=== PATIENT | female | born 1940 | race African-American/Black ===

== ENCOUNTER 2022-02-24 17:44 | Inpatient (IN) | payer OTHER ==
[~2022-02-24] VITALS: Ht 160 cm; Wt 63.0 kg
[2022-02-24] MEDS ORDERED: potassium (17:47)
[2022-02-24 19:59] LABS: HEMATOCRIT. 32.8 % (36.0-48.0); HEMOGLOBIN. 10.4 g/dL (12.0-16.0); MEAN CORPUSCULAR HEMOGLOBIN 23.7 pg (28.0-32.0); MEAN CORPUSCULAR VOLUME 74.9 fL (81.0-99.0); MEAN PLATELET VOLUME 8.3 fl (7.4-10.4); PLATELET 123 x1000/uL (130-400); RED BLOOD CELL COUNT 4.38 mill/uL (4.2-5.4); RED CELL DISTRIBUTION WIDTH 15.4 % (11.6-14.6)
[2022-02-24 20:17] LABS: INR 1.1; PROTHROMBIN TIME 11.4 sec (9.6-11.0)
[2022-02-24 20:24] LABS: CHLORIDE 106 mEq/L (98-107)
[2022-02-24] MEDS ORDERED: MORPHINE SULFATE 4 MG/ML CPJ (NOT FOR IM USE) IV ONE (21:15)
[2022-02-24] MEDS ORDERED: ENOXAPARIN 60MG/0.6ML SYR SUBCUT ONE (22:45)
[2022-02-24 22:49] LABS: PLATELET ESTIMATE SLIGHTLY DECREASED
[2022-02-25 05:37] LABS: CLARITY URINE CLEAR (CLEAR); COLOR URINE YELLOW (YELLOW); KETONES URINE NEGATIVE (NEGATIVE); LEUKOCYTE ESTERASE URINE 2+ (NEGATIVE); NITRITE URINE NEGATIVE (NEGATIVE); OCCULT BLOOD URINE NEGATIVE (NEGATIVE); PH URINE 7.5 (4.5-8.0); PROTEIN URINE NEGATIVE (NEGATIVE); SPECIFIC GRAVITY URINE 1.012 (1.005-1.030)
[2022-02-25] MEDS ORDERED: IPRATROPIUM/ALBUTEROL 0.5-3(2.5)MG/3ML NEB HHN PRN (14:30)
[2022-02-25] MEDS ORDERED: ACETAMINOPHEN 325MG TABLET PO PRN (14:30)
[2022-02-25] MEDS ORDERED: CLONIDINE 0.1MG TABLET PO PRN (14:30)
[2022-02-25] MEDS ORDERED: ONDANSETRON HCL 4MG/2ML INJ IV PRN (14:30)
[2022-02-25] MEDS ORDERED: DIPHENHYDRAMINE 50MG/ML VIAL IV PRN (14:30)
[2022-02-25] MEDS ORDERED: MORPHINE SULFATE 2 MG/ML CPJ (NOT FOR IM USE) IV PRN (14:30)
[2022-02-25] MEDS ORDERED: NALOXONE HCL 0.4MG/ML VIAL IV PRN (15:00)
[2022-02-25 18:10] LABS: TOTAL IRON BINDING CAPACITY 313 ug/dL (250-450)
[2022-02-26 12:00] VITALS: BP 150/67
[2022-02-26] MEDS ORDERED: IRON SUCROSE COMPLEX 100 MG/5 ML ML IV NR (12:15)
[2022-02-26 13:54] LABS: BASOPHILS % 0.9 % (0.0-2.0); EOSINOPHILS % 8.8 % (0.0-5.0); HEMATOCRIT. 32.8 % (36.0-48.0); HEMOGLOBIN. 10.3 g/dL (12.0-16.0); LYMPHOCYTES % 15.2 % (20.0-50.0); MEAN CORPUSCULAR HEMOGLOBIN 23.7 pg (28.0-32.0); MEAN CORPUSCULAR VOLUME 75.9 fL (81.0-99.0); MEAN PLATELET VOLUME 9.4 fl (7.4-10.4); MONOCYTES % 11.9 % (2.0-8.0); NEUTROPHILS % 63.2 % (40.0-76.0); PLATELET 133 x1000/uL (130-400); RED BLOOD CELL COUNT 4.32 mill/uL (4.2-5.4); RED CELL DISTRIBUTION WIDTH 15.2 % (11.6-14.6)
[2022-02-26 14:04] LABS: CHLORIDE 105 mEq/L (98-107)
[2022-02-26 15:53] VITALS: BP 150/67
[2022-02-26 16:00] VITALS: BP 167/68
[2022-02-26 20:00] VITALS: BP 137/86
[2022-02-27] VITALS: BP 145/70
[2022-02-27 04:00] VITALS: BP 143/49
[2022-02-27 06:45] LABS: HEMATOCRIT. 32.8 % (36.0-48.0); HEMOGLOBIN. 10.4 g/dL (12.0-16.0); MEAN CORPUSCULAR HEMOGLOBIN 24.2 pg (28.0-32.0); MEAN CORPUSCULAR VOLUME 76.2 fL (81.0-99.0); MEAN PLATELET VOLUME 8.8 fl (7.4-10.4); PLATELET 124 x1000/uL (130-400); RED CELL DISTRIBUTION WIDTH 15.4 % (11.6-14.6)
[2022-02-27 07:17] LABS: CHLORIDE 108 mEq/L (98-107)
[2022-02-27 08:00] VITALS: BP 130/47
[2022-02-27 10:51] LABS: PLATELET ESTIMATE SLIGHTLY DECREASED
[2022-02-27 12:00] VITALS: BP 133/49
[2022-02-27 16:00] VITALS: BP 142/52
[2022-02-27 16:56] VITALS: BP 132/59
== END 2022-02-27 17:20 | disposition home or self-care (01) | DRG 280 ==
LOC: ER 17:44 → 7WST 22:32 → EDBEDREQ 22:34 → ENRESERV 02-26 09:13
PROVIDERS: ADMIT Internal Medicine; ATTEND Internal Medicine
DX: I21.4 Non-ST elevation (NSTEMI) myocardial infarction (principal); I50.31 Acute diastolic (congestive) heart failure; E44.0 Moderate protein-calorie malnutrition; E78.5 Hyperlipidemia, unspecified; D69.6 Thrombocytopenia, unspecified; I11.0 Hypertensive heart disease with heart failure; D50.9 Iron deficiency anemia, unspecified; Z20.822 Contact with and (suspected) exposure to COVID-19; F03.90 Unspecified dementia, unspecified severity, without behavioral disturbance, psychotic disturbance, mood disturbance, and anxiety; I07.1 Rheumatic tricuspid insufficiency; Z86.73 Personal history of transient ischemic attack (TIA), and cerebral infarction without residual deficits; Z90.5 Acquired absence of kidney
CPT/HCPCS: 36415; 71045; 80048; 80053; 81001; 83550; 83880; 84484; 85025; 87426; 93005; 93306; 93970; 96372; 96374; 99285; C9803; J1650; J2270; J2405

== ENCOUNTER 2022-03-20 10:22 | Inpatient (IN) | payer OTHER ==
[~2022-03-20] VITALS: Ht 165.1 cm; Wt 54.4 kg
[2022-03-20] MEDS ORDERED: ACETAMINOPHEN 325MG TABLET PO ONE (11:00)
[2022-03-20 11:26] LABS: BASOPHILS % 0.9 % (0.0-2.0); EOSINOPHILS % 7.1 % (0.0-5.0); HEMOGLOBIN. 10.8 g/dL (12.0-16.0); LYMPHOCYTES % 8.4 % (20.0-50.0); MEAN CORPUSCULAR HEMOGLOBIN 24.1 pg (28.0-32.0); MEAN CORPUSCULAR VOLUME 75.4 fL (81.0-99.0); MEAN PLATELET VOLUME 8.9 fl (7.4-10.4); MONOCYTES % 10.6 % (2.0-8.0); PLATELET 145 x1000/uL (130-400); RED CELL DISTRIBUTION WIDTH 16.3 % (11.6-14.6)
[2022-03-20 11:35] LABS: CHLORIDE 107 mEq/L (98-107)
[2022-03-20] MEDS ORDERED: ASPIRIN 325MG TABLET PO ONE (12:00)
[2022-03-20 13:45] LABS: CLARITY URINE CLEAR (CLEAR); COLOR URINE YELLOW (YELLOW); KETONES URINE NEGATIVE (NEGATIVE); LEUKOCYTE ESTERASE URINE TRACE (NEGATIVE); NITRITE URINE NEGATIVE (NEGATIVE); OCCULT BLOOD URINE TRACE (NEGATIVE); PROTEIN URINE NEGATIVE (NEGATIVE); SPECIFIC GRAVITY URINE 1.008 (1.005-1.030); UROBILINOGEN URINE 0.2 E.U./dL (0.2-1.0)
[2022-03-20] MEDS ORDERED: GUAIFENESIN 200MG/10ML SUGAR FREE UDC PO PRN (14:00)
[2022-03-20] MEDS ORDERED: IPRATROPIUM/ALBUTEROL 0.5-3(2.5)MG/3ML NEB HHN PRN (14:00)
[2022-03-20] MEDS ORDERED: CLONIDINE 0.1MG TABLET PO PRN (14:00)
[2022-03-20] MEDS ORDERED: ACETAMINOPHEN 325MG TABLET PO PRN ×2 (14:00)
[2022-03-20] MEDS ORDERED: DOCUSATE SODIUM 100MG CAPSULE PO PRN (14:00)
[2022-03-20] MEDS ORDERED: HYDROCODONE/ACETAMINOPHEN 5/325MG TABLET PO PRN (14:00)
[2022-03-20] MEDS ORDERED: ONDANSETRON HCL 4MG/2ML INJ IV PRN (14:00)
[2022-03-20] MEDS ORDERED: SODIUM POLYSTYRENE SULFONATE 15 G/60 ML BOT PO NR (14:00)
[2022-03-20] MEDS ORDERED: AMLODIPINE 10MG TABLET PO SCH (14:00)
[2022-03-20] MEDS ORDERED: NALOXONE HCL 0.4MG/ML VIAL IV PRN (14:30)
[2022-03-20 14:37] LABS: D-DIMER 1.6 mg/L FEU (<0.50); INR 1.1; PROTHROMBIN TIME 11.3 sec (9.6-11.0)
[2022-03-20] MEDS ORDERED: METOPROLOL TARTRATE 25MG TABLET PO SCH (14:45)
[2022-03-20] MEDS ORDERED: CLONIDINE 0.1MG TABLET PO SCH (14:45)
[2022-03-20] MEDS: FUROSEMIDE 20MG TABLET PO SCH (14:45)
[2022-03-20] MEDS: LISINOPRIL 2.5MG TABLET PO SCH (15:00)
[2022-03-20] MEDS ORDERED: IRON SUCROSE COMPLEX 100 MG/5 ML ML IV SCH (15:00)
[2022-03-20] MEDS ORDERED: DEXT 5%/0.45% NACL 1000ML 1,000 ML IV SCH (15:15)
[2022-03-20] MEDS ORDERED: MORPHINE SULFATE 2 MG/ML CPJ (NOT FOR IM USE) IV PRN (15:45)
[2022-03-20 16:43] LABS: PROTHROMBIN TIME 11.2 sec (9.6-11.0)
[2022-03-20 17:20] LABS: FERRITIN 419 ng/mL (10-291)
[2022-03-20 17:26] LABS: VITAMIN B12 SERUM 431 pg/mL (211-911)
[2022-03-20] MEDS ORDERED: ENOXAPARIN 30MG/0.3ML SYR SUBCUT SCH (18:00)
[2022-03-20 20:00] VITALS: BP 181/70
[2022-03-20] MEDS: METOPROLOL TARTRATE 25MG TABLET PO SCH (20:36)
[2022-03-20] MEDS: CLONIDINE 0.1MG TABLET PO SCH (20:37)
[2022-03-20] MEDS: AMLODIPINE 5MG TABLET PO SCH (20:37)
[2022-03-20] MEDS ORDERED: FAMOTIDINE 20MG TABLET PO SCH (21:00)
[2022-03-20] MEDS ORDERED: [UNRECOGNIZED DRUG - CODE] MC (22:49)
[2022-03-20] MEDS ORDERED: MV-M1TAB19 PO (22:49)
[2022-03-20] MEDS ORDERED: FURO-152 PO (22:49)
[2022-03-20] MEDS ORDERED: NITR0.4T49 SL (22:49)
[2022-03-20] MEDS ORDERED: PANT40TA51 PO (22:49)
[2022-03-20] MEDS ORDERED: METO-396 PO (22:49)
[2022-03-20] MEDS ORDERED: LISI10TA26 PO (22:49)
[2022-03-20] MEDS ORDERED: LISI20TA31 PO (22:49)
[2022-03-20] MEDS ORDERED: ASPI-1497 PO (22:49)
[2022-03-20] MEDS ORDERED: CHOL1POW2 MC (22:49)
[2022-03-20] MEDS ORDERED: IOHEXOL-350 100 ML BOTTLE ONE (23:11)
[2022-03-20 23:35] LABS: CREATINE KINASE 1446 IU/L (26-192)
[2022-03-21] VITALS: BP 136/80
[2022-03-21 03:48] VITALS: BP 120/75
[2022-03-21 04:00] VITALS: BP 113/50
[2022-03-21] MEDS: CLONIDINE 0.1MG TABLET PO SCH ×2 (05:24→14:09)
[2022-03-21 07:16] LABS: BASOPHILS % 1.6 % (0.0-2.0); EOSINOPHILS % 7.8 % (0.0-5.0); HEMATOCRIT. 32.5 % (36.0-48.0); HEMOGLOBIN. 10.4 g/dL (12.0-16.0); LYMPHOCYTES % 15.7 % (20.0-50.0); MEAN CORPUSCULAR HEMOGLOBIN 24.1 pg (28.0-32.0); MEAN CORPUSCULAR VOLUME 75.2 fL (81.0-99.0); MEAN PLATELET VOLUME 8.8 fl (7.4-10.4); MONOCYTES % 14.9 % (2.0-8.0); PLATELET 124 x1000/uL (130-400); RED BLOOD CELL COUNT 4.32 mill/uL (4.2-5.4); RED CELL DISTRIBUTION WIDTH 15.6 % (11.6-14.6)
[2022-03-21 07:47] LABS: CHLORIDE 104 mEq/L (98-107)
[2022-03-21 08:00] VITALS: BP 143/49
[2022-03-21] MEDS: FUROSEMIDE 20MG TABLET PO SCH (08:42)
[2022-03-21] MEDS: AMLODIPINE 5MG TABLET PO SCH (08:43)
[2022-03-21] MEDS: METOPROLOL TARTRATE 25MG TABLET PO SCH (08:43)
[2022-03-21] MEDS: LISINOPRIL 2.5MG TABLET PO SCH (08:43)
[2022-03-21] MEDS ORDERED: INFLUENZA VACCINE 05/PF 0.5 ML SYRINGE IM ONE (11:00)
[2022-03-21] MEDS ORDERED: PNEUMOCOCCAL 23-VAL P-SAC VAC 0.5 ML IM ONE (11:00)
[2022-03-21 11:26] LABS: *AMPHETAMINES SCREEN URINE NEGATIVE (NEGATIVE); *BARBITURATES SCREEN URINE NEGATIVE (NEGATIVE); *BENZODIAZEPINES SCREEN URINE NEGATIVE (NEGATIVE); *COCAINE SCREEN URINE NEGATIVE (NEGATIVE); CANNABINOID URINE SCREEN NEGATIVE (NEGATIVE); METHADONE URINE SCREEN NEGATIVE (NEGATIVE); OPIATES URINE SCREEN NEGATIVE (NEGATIVE); PHENCYCLIDINE URINE SCREEN NEGATIVE (NEGATIVE)
[2022-03-21 12:00] VITALS: BP 142/58
[2022-03-21] MEDS ORDERED: POTASSIUM CHLORIDE 20MEQ/PACKET PO NR (12:00)
[2022-03-21] MEDS ORDERED: IPRATROPIUM BROMIDE (0.02%) 0.5MG/2.5ML NEB HHN PRN (12:45)
[2022-03-21] MEDS ORDERED: ALBUTEROL (0.083%) 2.5MG/3ML NEB HHN PRN (12:45)
[2022-03-21] MEDS ORDERED: ASPIRIN 81MG EC TABLET PO NR (13:30)
[2022-03-21 14:02] VITALS: BP 142/58
[2022-03-22] MEDS ORDERED: ASPIRIN 81MG EC TABLET PO SCH (09:00)
== END 2022-03-21 14:45 | disposition home or self-care (01) | DRG 312 ==
LOC: ER 10:22 → 8WST 14:27 → EDBEDREQ 15:14 → EDBEDREQTM 15:14
PROVIDERS: ADMIT Internal Medicine; ATTEND Internal Medicine
DX: R55 Syncope and collapse (principal); E46 Unspecified protein-calorie malnutrition; I16.9 Hypertensive crisis, unspecified; S00.03XA Contusion of scalp, initial encounter; I10 Essential (primary) hypertension; E87.6 Hypokalemia; D50.9 Iron deficiency anemia, unspecified; F03.90 Unspecified dementia, unspecified severity, without behavioral disturbance, psychotic disturbance, mood disturbance, and anxiety; E87.5 Hyperkalemia; I07.1 Rheumatic tricuspid insufficiency; I15.8 Other secondary hypertension; M81.0 Age-related osteoporosis without current pathological fracture; Z96.651 Presence of right artificial knee joint; Z86.711 Personal history of pulmonary embolism; Z86.73 Personal history of transient ischemic attack (TIA), and cerebral infarction without residual deficits; Z79.82 Long term (current) use of aspirin; Z79.899 Other long term (current) drug therapy; Z90.5 Acquired absence of kidney; W18.30XA Fall on same level, unspecified, initial encounter; Y92.009 Unspecified place in unspecified non-institutional (private) residence as the place of occurrence of the external cause; Y93.89 Activity, other specified; Y99.8 Other external cause status
CPT/HCPCS: 36415; 71045; 71275; 73502; 73552; 73562; 73590; 80048; 80053; 80061; 80305; 81003; 82550; 82607; 82652; 82728; 83540; 83550; 83735; 83880; 84443; 84484; 85025; 85379; 86850; 86900; 87426; 90686; 90732; 93005; 93880; 93970; 97162; 97166; 99291; C9803; Q9967